=== PATIENT | female | born 1965 | race Caucasian/White ===

== ENCOUNTER 2019-05-24 10:02 | Observation (INO) | payer OTHER, SELFPAY ==
[2019-05-24] VITALS (9 sets, daily range): BP systolic 106–141; BP diastolic 57–116; PULSE 72–95; RESP 16–20; TEMP 36.4–37.3; O2SAT 94–99; BMI 32.5; BMI 32.8
--- NOTE | 2019-05-24 10:13 | ED.VISSUMM ---
- ER Visit Summary Date of Service: 05/24/19 Chief Complaint: Right flank pain History of Present Illness: The patient is a 54 F who presents with right flank pain that began last night. Patient states the pain began in her back. Patient states the pain became worse today. Patient states today the pain is now in the right lower abdomen. Patient describes her pain is spasms and similar to labor. Patient states she took some ibuprofen last night which did help. Patient denies any prior episodes of similar pain. Patient admits to some nausea but denies any vomiting. Patient denies any dysuria or hematuria. Physical Examination: Vital signs are stable. Patient is afebrile. Patient is in no acute distress. Oral mucosa is pink and moist. Neck is supple. Trachea is midline. There is no JVD noted. Heart was regular rate and rhythm. Lungs are clear and equal bilaterally. Abdomen is soft. Bowel sounds are normal. There is some right lower quadrant tenderness. There is no rebound or guarding noted. There is no CVA tenderness. Cranial nerves II through XII are intact. There are no focal motor or sensory deficits noted. Test Results: CBC shows a leukocytosis of 13.9. Basic metabolic profile is within normal limits. CT scan of the abdomen pelvis was obtained. There is mild early appendicitis. This was interpreted by the radiologist. Emergency Department Course and Treatment: Patient was given IV fluids, Toradol, and Zofran here. Patient was feeling better on reevaluation. Patient states she has seen Dr. Borden in the past and is requesting to see him again for surgery. Case was discussed with Dr. Borden. Patient will be mid to the operating room for appendicitis Disposition: Admit to hospital Impression: 1. Acute appendicitis This note was generated with [employer] dictation software. It may contain incorrect words, spelling, and punctuation that were not noted in review of the chart prior to signing ED Disposition - Plan for ED Patient: Disposition: [facility] Diagnosis: Acute appendicitis
[2019-05-24] MEDS: Ketorolac 30 MG/ML Syringe IV (10:17)
[2019-05-24] MEDS: Ondansetron 4 MG/2 ML Vial IV (10:17)
--- NOTE | 2019-05-24 10:17 | CT_ITS ---
We are attempting to reach an attending provider to discuss findings. An addendum with communication details will be sent when the communication is complete. STUDY: CT ABDOMEN AND PELVIS WITHOUT CONTRAST REASON FOR EXAM: Female, 54 years old. Low back pain/cramping since last night. Pain now in right lower quadrant. RADIATION DOSAGE (If Supplied By Facility): CTDIvol = ( 11.94 ) mGy, DLP = ( 617.27 ) mGycm TECHNIQUE: Transaxial images were obtained from the dome of the diaphragm to the symphysis pubis without oral contrast, and without intravenous contrast. Sagittal and coronal images were reconstructed. Individualized dose optimization techniques were used for this CT. COMPARISON: None. FINDINGS: The visualized lung bases are unremarkable. The visualized portions of the heart are within normal limits. Normal liver. Normal gallbladder and extrahepatic biliary system. Normal spleen. Normal pancreas. Normal bilateral adrenal glands. Normal right kidney. Normal left kidney. Normal visualized stomach. Normal small intestine. Normal colon. Abnormal thickening of the appendix with a tiny appendicolith. This is worrisome for early acute appendicitis. Minimal calcified plaque in the abdominal aorta. Otherwise normal abdominal aorta. Normal inferior vena cava. Normal retroperitoneum. Normal urinary bladder. Normal anteverted uterus. No suspicious abnormality in the bilateral adnexal regions. Normal abdominal wall. Normal osseous structures. CT/Abdomen/Pelvis without Cont IMPRESSION: Mild early acute appendicitis. Electronically Signed: Elpidio Langston MD at 10:58 EDT , Service support ,
[2019-05-24 10:25] LABS: Absolute Lymphocyte Count 1.04 X10^3/uL (0.83-4.51); Basophil# 0.03 X10^3/uL; Basophil% 0.2 % (0-1); Hematocrit 42.5 % (37-47); Hemoglobin 14.5 g/dL (12.0-15.0); Lymphocyte # 1.04 X10^3/ul (4.0); Lymphocyte % 7.5 % (19-41); Mean Corp Hgb Conc 34.1 g/dL (32-36); Mean Corpuscular Hgb 30.3 pg (27.0-32.0); Mean Corpuscular Volume 88.9 fL (81-99); Mean Platelet Vol. 9.4 fl (6.2-12.0); Monocyte% 5.1 % (0-10); NRBC Flagged by Analyzer 0 % (0-5); Neutrophil # 12.01 X10^3/uL (2.7-7.7); Neutrophil % 86.7 % (47-70); Platelet Count 261 K/mm3 (150-450); RBC Distribution Width CV 12.2 % (11.6-14.6); RBC Distribution Width SD 39.8 fl (35.1-43.9); Red Blood Count 4.78 M/mm3 (4.2-5.4); White Blood Count 13.9 K/mm3 (4.4-11.0)
[2019-05-24 10:37] LABS: Anion Gap 10 (5-15); BUN 14 mg/dL (7-18); BUN/Creat Ratio 15.8 RATIO (10-20); Calcium,Total 9.5 mg/dL (8.5-10.1); Chloride 102 mmol/L (98-107); Creatinine, Serum 0.88 mg/dL (0.55-1.02); EST Glomerular Filtration Rate 71 mL/min (>60); Est Glom Filt Rate - Afr Amer 86 mL/min (>60); Estimated Creatinine Clearance 63.84 ml/min; Glucose 112 mg/dL (74-106); Potassium 3.4 mmol/L (3.5-5.1); Sodium Level 136 mmol/L (136-145)
[2019-05-24] MEDS: 0.9% Normal Saline 1,000 ML 250 ML IV (10:39)
--- NOTE | 2019-05-24 11:25 | ED.RN ---
REPORT CALLED TO ELLA IN AC. PHARMACY CALLED TO HAVE ZOSYN TUBED TO [facility]
--- NOTE | 2019-05-24 11:39 | PCM.HP.STD ---
Problem List (1) Acute appendicitis Status: Acute Qualifiers: Acute appendicitis type: with localized peritonitis Appendicitis gangrene presence: without gangrene Appendicitis perforation presence: without perforation Appendicitis abscess presence: without abscess Qualified Code(s): K35.30 - Acute appendicitis with localized peritonitis, without perforation or gangrene History of Present Illness Date of Admission: 05/24/19 The patient is a 54 year old F who developed low back pain last evening. She thought it similar to back labor. By this morning it is localized to the right lower quadrant. She presented to the [facility] emergency room. Laboratory demonstrates a white count of 13,000. CT scan shows findings of acute appendicitis. I was specifically asked by the patient to assist with her surgical care. Past Medical History Allergies No Known Allergies Allergy (Verified 05/24/19 10:07) Home Medications: Ambulatory Orders Medication Instructions Recorded NK 05/24/19 Smoking Status: Never smoker Review of Systems Constitutional: Denies: Anorexia Cardiovascular: Denies: Chest Pain Gastrointestinal: Reports: Abdominal Pain Psychiatric: Denies: Anxiety VTE Information - Inpt Only VTE Present on Admission: No Patient Problems: Active and Suspected Problems Acute appendicitis (Acute) - Physical Exam General: Alert, Oriented x3, Cooperative Oral: Moist Mucosa Lungs: Clear to auscultation, Normal air movement Cardiovascular: Regular rate, Regular Rhythm Abdomen: Bowel Sounds Present, Soft, Non Tender Vital Signs Temp Pulse Resp BP Pulse Ox 97.6 F L 95 20 H 141/116 H 99 05/24/19 10:03 05/24/19 10:03 05/24/19 10:03 05/24/19 10:03 05/24/19 10:03 Oxygen Delivery Method Room Air Weight: 189 lb 13.088 oz Body Mass Index (BMI) 32.5 Laboratory Tests Past 24 Hrs 05/24/19 05/24/19 10:20 10:20 WBC 13.9 H RBC 4.78 Hgb 14.5 Hct 42.5 MCV 88.9 MCH 30.3 MCHC 34.1 RDW Std Deviation 39.8 RDW Coeff of Guera 12.2 Plt Count 261 MPV 9.4 Immature Gran % (Auto) 0.500 Neut % (Auto) 86.7 H Lymph % (Auto) 7.5 L Hand % (Auto) 5.1 Eos % (Auto) 0.0 Baso % (Auto) 0.2 Absolute Neuts (auto) 12.0 H Absolute Lymphs (auto) 1.04 Nucleated RBC % 0 Sodium 136 Potassium 3.4 L Chloride 102 Carbon Dioxide 24.0 Anion Gap 10 BUN 14 Creatinine 0.88 Estim Creat Clear Calc 63.84 Est GFR (MDRD) Af Amer 86 Est GFR (MDRD) Non-Af 71 BUN/Creatinine Ratio 15.8 Glucose 112 H Calcium 9.5 Assessment/Plan All Active Problems Acute appendicitis (Acute) Findings are very much consistent with acute appendicitis. I recommended the patient laparoscopic appendectomy with conversion to an open technique if indicated. We have discussed surgical and nonsurgical options. She has had an opportunity to ask and have questions answered. We will proceed and expedite her care. Chad Borden M.D., F.A.C.S.
--- NOTE | 2019-05-24 11:46 | PCM.DC.GS ---
Discharge Diet: Light diet - advance as tolerated - if you have questions about your diet instructions, please talk to you doctor. Discharge Activity: May Not Drive - for 3-5days or while taking narcotic pain medicine. May shower in (days): 1 Lifting Restrictions: 10 pounds Call your doctor if your incision/area has: Continuous Slow Oozing, Sudden Increased Bleeding, Increased Pain/ Swelling, Increased Redness, Foul Smelling Discharge Call your doctor if you observe: Fever of 101 or Higher Suture Line Care: Avoid Pulling/Pushing, Avoid Pinching/Bending Additional Dressing/Incision Instructions:: Change or remove dressing in 4 days. Leave steri-strips in place for 1 week. Additional Instructions: You may use OTC pain meds as needed. 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 Allergies/Adverse Reactions: Allergies No Known Allergies Allergy (Verified 05/24/19 10:07) Primary Care Physician: Chevy Borden III, MD [Primary Care Provider] - Test Results: Test results from this visit will be discussed in further detail at your follow-up appointment, if applicable. Please Follow Up With: Chad Borden MD - [phone] When: Call to make an appointment to be seen in about 10 days.
--- NOTE | 2019-05-24 12:00 | APP_PTH ---
PATIENT: NILSON BRAVO LOC: [facility] U#:[id number] AGE/SX: 54/F ROOM: [facility]318 RE05/24/[address]: Dr. Chad Borden MD : 1965 BED: 1 DIS: 05/25/2019 SPEC #: [id number] RECD: 05/24/19 15:16 STATUS: MEGHAN TROY #: [id number] TEDDY: 05/24/19 12:[address]: Chad Borden DEPT: SURGICAL PATHOLOGY RECD BY: Slime Phillips ENTERED: 05/27/19 09:25 SP TYPE: APPENDIX OTHR DR: Chevy Borden III, MD Tissues: Appendix, NOS Procedures: Surgery Specimen Level III HEADER OPERATION: Laparoscopic appendectomy PRE-OP DIAGNOSIS: Acute appendicitis TISSUE SUBMITTED: Appendix MICROSCOPIC DIAGNOSIS Appendix, appendectomy: Acute appendicitis and periappendicitis. EVER:priyanka 10/15/19 MICROSCOPIC DESCRIPTION Slides are reviewed. GROSS DESCRIPTION Received is one container labeled with the patient's name and designated appendix. The specimen consists of an appendix measuring 7.5 cm in length and up to 1 cm in diameter. The serosa is covered with hernandez, purulent exudate. No obvious perforation is identified. The attached periappendiceal fat measures up to 2 cm in width. The lumen contains fecal material mixed with hemorrhagic material. No fecalith is identified. Production Planning Manager sections are submitted in one cassette. / SJ:priyanka 05/27/19 TC:2 CPT: 68047
[2019-05-24] MEDS: Bupivacaine Mpf 0.5% 30 ML VIAL (12:34)
--- NOTE | 2019-05-24 12:34 | OP.PCM_ITS ---
Problem List (1) Acute appendicitis Status: Acute Qualifiers: Acute appendicitis type: with localized peritonitis Appendicitis gangrene presence: without gangrene Appendicitis perforation presence: without perforation Appendicitis abscess presence: without abscess Qualified Code(s): K35.30 - Acute appendicitis with localized peritonitis, without perforation or gangrene Report of Operation Date of Procedure: 05/24/19 Pre-Operative Diagnosis: Acute appendicitis Post-Operative Diagnosis: Acute appendicitis Surgery/Procedure Performed:: Laparoscopic appendectomy Description of Surgical Findings:: Timeout and informed consent was obtained 54-year-old female taken out from placement table she was receiving Zosyn 3.375 g intravenously. He underwent general endotracheal intubation anesthesia. The abdomen sterilely prepped draped. 0.5% Marcaine was used as local anesthetic. Throughout the procedure total 30 cc was used. Skin sites were pre-anesthetized. A vertical infraumbilical incision was created holding sutures of 0 Vicryl placed varies needle inserted saline drop test performed the abdomen was insufflated with CO2 to a pressure of 10 mmHg pressure. Elizabeth trocar inserted. 10 lap scope inserted. No evidence of any trocar injuries. 5 Chun ports were placed suprapubically in the low mid abdomen. The appendix had omentum adherent to it was acutely inflamed and diffusely thickened. There was a small amount of cloudy purulent appearing fluid within the right lower pelvic sidewall. This was blotted free. A window was made in the mesoappendix standard height 45 mm stapler was used to transect the appendix flush with the cecum. A white vascular right stapler was used to transect the mesoappendix. The appendix was placed in a retrieval bag. The right lower quadrant area was inspected hemostasis was nicely intact it was dabbed with Ray-Caitlin to in excess fluid as it was dabbed free. Hemostasis very nicely intact. The appendix was removed at the umbilicus. The remaining trochars removed under visualization. The fascia at the umbilicus approximated with interrupted 0 Vicryl [id number] suture. Skin edges approximated with interrupted 4 Monocryl subdermal stitches. Steri- Strips and Telfa and OpSite dressings applied. Sponge and instrument and needle counts reported observed to be correct. Specimens appendix. Drains none. Blood loss minimal. Chad Borden M.D., F.A.C.S. Type of Anesthesia:: General Anesthesiologist: Steven Rodas
[2019-05-24] MEDS: Lactated Ringers 1,000 ML 50 ML IV (13:12)
--- NOTE | 2019-05-24 16:51 | PCM.PN.BLA ---
Progress Note Low grade fever, slightly flushed, comfortable, no flatus Will continue IV antibiotics--likely mild bacteremia from appendicitis Hopeful DC in morning
[2019-05-25] MEDS: Lactated Ringers 1,000 ML 50 ML IV (02:58)
[2019-05-25 03:08] VITALS: BP 107/69; PULSE 70; RESP 18; TEMP 37.2; O2SAT 96
[2019-05-25 03:10] LABS: Bacteria 0 SEEN /hpf (None Seen); Mucous, Urine 0 SEEN /hpf (<or=2+)
[2019-05-25 03:14] LABS: Color, Urine Yellow (Yellow); Glucose, Dipstick Normal (Normal); Ketone-Dipstick Negative (Negative); Leukocyte Esterase-Dipstick Negative /ul (Negative); Nitrite-Dipstick Negative (Negative); Occult Blood-Urine Negative /ul (Negative); Protein-Dipstick Negative (Negative); Specific Gravity, Urine 1.015 (1.002-1.030); Urine Bilirubin Dipstick Negative (Negative); Urine Clarity Clear (Clear); Urine Urobilinogen Normal (Normal)
[2019-05-25 03:48] LABS: Squamous Epithelial Cells - UA 0-5 SEEN /hpf (5-10)
[2019-05-25 03:49] LABS: Red Blood Cells-Urine 0-5 SEEN /hpf (0-5)
[2019-05-25 03:50] LABS: White Blood Cells 0-5 SEEN /hpf (0-5)
[2019-05-25] MEDS: Acetaminophen 325 MG Tablet 650 MG PO (06:22)
--- NOTE | 2019-05-25 07:17 | PCM.PN.SRG ---
Patient Problems: Active and Suspected Problems Acute appendicitis (Acute) Subjective: Pt without complaint, no nausea or vomiting. No flatus. No pain - Physical Exam Lungs: Clear to auscultation Abdomen: Soft, Non Tender, Hypoactive Bowel Sounds Vital Signs Temp Pulse Resp BP Pulse Ox 99.0 F 70 18 107/69 96 05/25/19 03:08 05/25/19 03:08 05/25/19 03:08 05/25/19 03:08 05/25/19 03:08 Oxygen Delivery Method Room Air Weight: 191 lb Body Mass Index (BMI) 32.8 Intake and Output for Last 24 Hours 05/23/19 05/24/19 05/25/19 23:59 23:59 23:59 Intake Total 1550 / 1850 1038.33 / 1038.33 Balance 1550 / 1850 1038.33 / 1038.33 Laboratory Tests Past 24 Hrs 05/24/19 05/24/19 05/25/19 10:20 10:20 03:00 WBC 13.9 H RBC 4.78 Hgb 14.5 Hct 42.5 MCV 88.9 MCH 30.3 MCHC 34.1 RDW Std Deviation 39.8 RDW Coeff of Guera 12.2 Plt Count 261 MPV 9.4 Immature Gran % (Auto) 0.500 Neut % (Auto) 86.7 H Lymph % (Auto) 7.5 L Hawkins % (Auto) 5.1 Eos % (Auto) 0.0 Baso % (Auto) 0.2 Absolute Neuts (auto) 12.0 H Absolute Lymphs (auto) 1.04 Nucleated RBC % 0 Sodium 136 Potassium 3.4 L Chloride 102 Carbon Dioxide 24.0 Anion Gap 10 BUN 14 Creatinine 0.88 Estim Creat Clear Calc 63.84 Est GFR (MDRD) Af Amer 86 Est GFR (MDRD) Non-Af 71 BUN/Creatinine Ratio 15.8 Glucose 112 H Calcium 9.5 Urine Color Yellow Urine Clarity Clear Urine pH 6.0 Ur Specific [place] 1.015 Urine Protein Negative Urine Glucose (UA) Normal Urine Ketones Negative Urine Occult Blood Negative Urine Nitrite Negative Urine Bilirubin Negative Urine Urobilinogen Normal Ur Leukocyte Esterase Negative Urine RBC 0-5 SEEN Urine WBC 0-5 SEEN Ur Squamous Epith Cells 0-5 SEEN Urine Bacteria 0 SEEN Urine Mucus 0 SEEN Medical Necessity - Tobacco Use Smoking Status: Never smoker Assessment/Plan All Active Problems Acute appendicitis (Acute) Plan discharge after current dose of antibiotic is complete
[2019-05-25 09:25] VITALS: BP 102/66; PULSE 73; RESP 18; TEMP 36.7; O2SAT 96
== END 2019-05-25 10:32 | disposition home or self-care (01) ==
LOC: ED 11:24 → SDC 11:32 → MS3 11:33 → SDC 12:15
PROVIDERS: Admitting Provider Surgery; Emergency Provider Emergency Medicine; Family Provider Family Medicine; PCP Family Medicine; Visit Provider Surgery
PROC: 0DTJ4ZZ Resection of Appendix, Percutaneous Endoscopic Approach (ICD-10-PCS; CPT 44970; principal; 2019-05-24 11:40)
DX: K35.30 Acute appendicitis with localized peritonitis, without perforation or gangrene (principal)
CPT/HCPCS: 00840; 44970; 74176; 80048; 81001; 85025; 88304; 96365; 96366; 96375; 99218; 99284; J7030; J7120; G0378; J2405

== ENCOUNTER 2021-04-08 09:50 | Day surgery (SDC) | payer OTHER, SELFPAY ==
[2021-04-08] VITALS (8 sets, daily range): BP systolic 114–131; BP diastolic 70–81; PULSE 49–57; RESP 16; TEMP 36.1–36.9; O2SAT 96–100; BMI 29.5
[2021-04-08 10:18] LABS: Internal QC Validated? YES +Cl - CLEAR BKGD; Pregnancy, Urine Negative Negative
[2021-04-08] MEDS: Lactated Ringers 1,000 ML 100 ML IV (10:32)
[2021-04-08] MEDS: Acetaminophen 500 MG Tablet 1000 MG PO (10:32)
[2021-04-08] MEDS: Ketorolac 30 MG/ML Syringe IV (10:33)
--- NOTE | 2021-04-08 11:35 | EMB_PTH ---
PATIENT: NILSON BRAVO LOC: [facility] [place] U#:[id number] AGE/SX: 56/F ROOM: RE04/08/[address]: Dr. Svetlana Hess MD : 1965 BED: DIS: 04/08/2021 SPEC #: [id number] RECD: 04/08/21 12:35 STATUS: MEGHAN REMaite #: [id number] TEDDY: 04/08/21 11:[address]: Svetlana Hess DEPT: SURGICAL PATHOLOGY RECD BY: Maria Guadalupe Singh ENTERED: 04/08/21 12:49 SP TYPE: ENDOM BX/C GARY DR: No Primary Care Phys Tissues: Endometrium, NOS Procedures: Surgery Specimen Level IV HEADER OPERATION: Hysteroscopy, D & C PRE-OP DIAGNOSIS: Abnormal uterine bleeding TISSUE SUBMITTED: Endometrial curettings MICROSCOPIC DIAGNOSIS Endometrial curettings: Consistent with exogenous hormone effect. Fragments of myometrium. Fragments of ectocervical epithelium. See comment. SJ:priyanka 04/09/2021 COMMENT Rare plasma cells are noted suspicious for chronic endometritis. MICROSCOPIC DESCRIPTION Slides are reviewed. GROSS DESCRIPTION Received in fixative is one container labeled with the patient's name and designated endometrial curettings. The specimen consists of multiple fragments of hemorrhagic soft tissue mixed with mucoid tissue that in aggregate measure 5 x 3 x 0.3 cm. The entire specimen is submitted in two cassettes. / EVER:priyanka 04/08/21 TC:5 CPT: 25346
[2021-04-08] MEDS: Lidocaine 1% /Epi 1:100 (20ml) 20 ML Vial (11:44)
[2021-04-08] MEDS: Lubricating Jelly 60 GM Tube 30 GM TOPICAL (11:44)
--- NOTE | 2021-04-08 11:53 | PCM.DC ---
Discharge Instructions Diet Discharge Diet: No restrictions Activity May resume sexual activity in: 2 weeks Lifting Restrictions: none Dressing / Incision Call your doctor if your incision/area has: Sudden Increased Bleeding and Foul Smelling Discharge Call your doctor if you observe: Fever of 101 or Higher and Using more than 1 pad per hour (for 2 hrs in a row) Follow Up Care Please Follow Up With: Svetlana Hess MD When: 2-4 weeks or as needed. Call [phone] to make an appointment or with any concerns. Test Results: Test results from this visit will be discussed in further detail at your follow-up appointment, if applicable. Discharge Plan Admission Primary Reason for Your Visit: Abnormal uterine bleeding, Dilation and curettage Attending Provider: Svetlana Hess Primary Care Provider: Care Physician,Abigail Primary Discharge Orders/Prescriptions Prescriptions: No Action norethindrone acetate 5 mg tablet 5 mg PO BID RF: 0 Referrals / Follow Up: Care Physician,No Primary [Primary Care Provider] - Disposition Disposition (needs filled in before D/C Order can be placed): Home, Self Care
--- NOTE | 2021-04-08 11:56 | PCM.OPRPT ---
Problems Associated Problem List Diagnoses (1) Abnormal uterine bleeding: Report of Operation Date of Procedure: 04/08/21 Pre-Operative Diagnosis: abnormal uterine bleeding Post-Operative Diagnosis: same Surgery/Procedure Performed:: hysteroscopy dilation and curettage. Description of Surgical Findings:: Normal, vagina, vulva. Endometrium without discrete polyps or fibroids. Lush endometrium Surgeon: Svetlana Hess concrete mixing plant superintendent: cornelius Parker Type of Anesthesia: MAC/Supplemental/Local Anesthesiologist: David Lee Special Medications: none Specimen's removed: endometrial curettings Drains: none Estimated Blood Loss (mL): 10 Fluids Replaced: 600 ml Description of Procedure: The patient was taken to the OR where she was prepped and draped in dorsal lithotomy position. The weighted speculum was placed in the vagina and the anterior lip of the cervix was grasped with a single-tooth tenaculum. A paracervical block was administered with [1% lidocaine with 1-100,000 epinephrine solution]. The cervix was dilated serially with Hegar dilators. The [5mm] hysteroscope was placed into the uterine cavity and the above findings were noted. Bilateral tubal ostia [were] identified. The hysteroscope was removed. A gentle sharp curettage was done of the uterine cavity. The instruments were removed from the vagina. The specimen was handed off and sent to pathology. All sponge and needle counts were correct. Vaginal sweep was performed by me. The patient was awakened and taken to the recovery room in stable condition. Hysteroscopic ins: 200cc normal saline Hysteroscopic outs:100cc Grafts/Implants Used: none Procedure Start Time: 11:42 Procedure Stop Time: 11:55 Complications none Admit VTE Documentation VTE Present on Admission: No VTE Mechan Device Prophylaxis: SCD's VTE Pharm Prophylaxis ordered?: No Reason prophylaxis not ordered:: Procedure Not Indicated
== END 2021-04-08 13:16 | disposition home or self-care (01) ==
LOC: SDC 09:53 → AC 09:53
PROVIDERS: Referring Provider Obstetrics & Gynecology; Visit Provider Obstetrics & Gynecology
PROC: 0UDB8ZZ Extraction of Endometrium, Via Natural or Artificial Opening Endoscopic (ICD-10-PCS; CPT 58558; principal; 2021-04-08 11:25)
DX: N93.9 Abnormal uterine and vaginal bleeding, unspecified (principal); Z90.49 Acquired absence of other specified parts of digestive tract
CPT/HCPCS: 00952; 58558; 81025; 88305; J7120